=== PATIENT | male | born 1970 | race Caucasian/White ===

== ENCOUNTER 2016-06-08 21:36 | Emergency (ER) | payer OTHER ==
[~2016-06-08 21:36] MED LIST: ALDACTONE50 MG PO; CATAPRES 0.1MG0.1 MG PO; DILTIAZEM 24HR360 MG PO; FLONASE 0.05% N16 GM INH; GABAPENTIN600 MG PO; HUMALOG100 UNIT/1 SQ; LEVEMIR100 UNIT/1 SQ; LISINOPRIL30 MG PO; PERCOCET 5-3251 EACH PO; PRAVACHOL20 MG PO; ZANTAC150 MG PO; ZOFRAN4 MG PO
[2016-06-08 22:51] LABS: RED BLOOD COUNT 4.57 M/UL (4.20-5.50); WHITE BLOOD COUNT 14.4 K/UL (4.5-11.0)
== END 2016-06-09 09:50 | disposition short-term general hospital (02) ==
LOC: ER1 21:36
PROVIDERS: Emergency Medicine
DX: R51 Headache (principal); R42 Dizziness and giddiness; I12.9 Hypertensive chronic kidney disease with stage 1 through stage 4 chronic kidney disease, or unspecified chronic kidney disease; E11.22 Type 2 diabetes mellitus with diabetic chronic kidney disease; N18.9 Chronic kidney disease, unspecified; Z90.49 Acquired absence of other specified parts of digestive tract; Z79.4 Long term (current) use of insulin; Z79.899 Other long term (current) drug therapy
CPT/HCPCS: 36415; 70450; 71010; 80053; 81001; 82550; 82553; 83874; 84484; 85025; 93005; 96374; 96375; 99285; J1200; J1885; J2405; J2550; J2765; J3360; J7030; J7040

== ENCOUNTER 2020-06-19 10:12 | Inpatient (IN) | payer OTHER ==
[~2020-06-19] VITALS: Ht 185.4 cm; Wt 136.1 kg
[~2020-06-19 10:12] MED LIST changes: -ALDACTONE50 MG PO; -CATAPRES 0.1MG0.1 MG PO; -HUMALOG100 UNIT/1 SQ; -LEVEMIR100 UNIT/1 SQ; +NORCO 7.5-3251 EACH PO; +ROBAXIN-750750 MG PO
[2020-06-19 12:29] LABS: HEMOGLOBIN 18.2 gm/dl (14.0-17.5); RED BLOOD COUNT 5.53 M/UL (4.20-5.50)
[2020-06-19] MEDS ORDERED: TRAMADOL HCL50 MG PO (15:47)
[2020-06-19] MEDS ORDERED: OMEPRAZOLE20 MG PO (15:50)
[2020-06-19] MEDS ORDERED: MELOXICAM15 MG PO (15:50)
[2020-06-19] MEDS ORDERED: BUSPAR 10MG10 MG PO (15:51)
[2020-06-19] MEDS ORDERED: MELATONIN5 MG PO (16:18)
[2020-06-19] MEDS ORDERED: SINGULAIR10 MG PO (16:19)
[2020-06-19] MEDS ORDERED: WELLBUTRIN SR150 M1 PO (16:19)
[2020-06-19] MEDS ORDERED: CLARITIN10 MG PO (16:19)
[2020-06-19] MEDS ORDERED: EPLERENONE50 MG PO (18:07)
[2020-06-19] MEDS ORDERED: CATAPRES 0.1MG0.1 MG PO (18:07)
[2020-06-19] MEDS ORDERED: BASAGLAR K100 UNIT/1 SC (18:10)
[2020-06-19] MEDS ORDERED: HUMALOG100 UNIT/1 SQ (18:11)
[2020-06-20 03:43] LABS: HEMOGLOBIN 17.2 gm/dl (14.0-17.5); RED BLOOD COUNT 5.33 M/UL (4.20-5.50); WHITE BLOOD COUNT 12.2 K/UL (4.5-11.0)
[2020-06-21 03:15] LABS: WHITE BLOOD COUNT 14.2 K/UL (4.5-11.0)
[2020-06-21 03:31] LABS: HEMOGLOBIN 15.2 gm/dl (14.0-17.5); RED BLOOD COUNT 4.73 M/UL (4.20-5.50)
[2020-06-23 05:49] LABS: HEMOGLOBIN 16.2 gm/dl (14.0-17.5); RED BLOOD COUNT 5.14 M/UL (4.20-5.50)
[2020-06-23 06:05] LABS: BUN/CREATININE RATIO 14 (0-10)
[2020-06-24 06:28] LABS: HEMOGLOBIN 15.6 gm/dl (14.0-17.5); RED BLOOD COUNT 4.83 M/UL (4.20-5.50); WHITE BLOOD COUNT 14.3 K/UL (4.5-11.0)
[2020-06-24 07:03] LABS: BUN/CREATININE RATIO 14 (0-10)
[2020-06-25 03:25] LABS: HEMOGLOBIN 14.5 gm/dl (14.0-17.5); RED BLOOD COUNT 4.51 M/UL (4.20-5.50); WHITE BLOOD COUNT 13.3 K/UL (4.5-11.0)
[2020-06-25 03:49] LABS: BUN/CREATININE RATIO 19 (0-10)
[2020-06-25] MEDS ORDERED: LEVOFLOXACIN500 MG PO (13:00)
--- NOTE | 2020-06-25 13:58 | NUR ---
INSTRUCTED PATIENT ON LEVAQUIN, FOLLOW UP APPOINTMENT, SIGNS AND SYMPTOMS OF PANCREATITIS. VERBALIZED UNDERSTANDING. Patricia KRAUS.
== END 2020-06-25 14:26 | disposition home or self-care (01) | DRG 438 ==
LOC: ER1 10:12 → MED SURG 4 15:37 → CDU 15:37 → MED SURG 4 20:30
PROVIDERS: Internal Medicine; Physician Assistant; ADMIT Internal Medicine
DX: K85.90 Acute pancreatitis without necrosis or infection, unspecified (principal); J18.9 Pneumonia, unspecified organism; E87.2 Acidosis; R65.10 Systemic inflammatory response syndrome (SIRS) of non-infectious origin without acute organ dysfunction; N17.9 Acute kidney failure, unspecified; D72.829 Elevated white blood cell count, unspecified; E11.9 Type 2 diabetes mellitus without complications; E78.5 Hyperlipidemia, unspecified; I12.9 Hypertensive chronic kidney disease with stage 1 through stage 4 chronic kidney disease, or unspecified chronic kidney disease; E11.22 Type 2 diabetes mellitus with diabetic chronic kidney disease; N18.30 Chronic kidney disease, stage 3 unspecified; Z20.822 Contact with and (suspected) exposure to COVID-19; E26.01 Conn's syndrome; G89.29 Other chronic pain; D75.1 Secondary polycythemia; E87.5 Hyperkalemia; K76.0 Fatty (change of) liver, not elsewhere classified; I16.0 Hypertensive urgency; R91.1 Solitary pulmonary nodule; E66.01 Morbid (severe) obesity due to excess calories; F19.21 Other psychoactive substance dependence, in remission; Z72.0 Tobacco use; Z79.4 Long term (current) use of insulin; Z82.49 Family history of ischemic heart disease and other diseases of the circulatory system; Z83.6 Family history of other diseases of the respiratory system; Z68.39 Body mass index [BMI] 39.0-39.9, adult; Z90.49 Acquired absence of other specified parts of digestive tract
CPT/HCPCS: 36415; 36600; 71045; 71046; 80048; 80053; 80061; 81001; 82009; 82150; 82800; 82962; 83036; 83605; 83690; 85025; 85027; 87040; 87081; 87086; 87880; 96374; 96375; 96376; 99284; J0360; J1644; J2270; J2405; J2550; J7030; U0002

== ENCOUNTER → 2020-07-20 | Outpatient (CLI) | payer OTHER ==
[~2020-07-20] MED LIST changes: +BASAGLAR K100 UNIT/1 SC; +BUSPAR 10MG10 MG PO; +CATAPRES 0.1MG0.1 MG PO; +CLARITIN10 MG PO; +EPLERENONE50 MG PO; +HUMALOG100 UNIT/1 SQ; +LEVOFLOXACIN500 MG PO; +MELATONIN5 MG PO; +MELOXICAM15 MG PO; +OMEPRAZOLE20 MG PO; +SINGULAIR10 MG PO; +TRAMADOL HCL50 MG PO; +WELLBUTRIN SR150 M1 PO
== END ==
LOC: CT 07-11 14:00
DX: R91.1 Solitary pulmonary nodule (principal)
CPT/HCPCS: 71260; Q9967

== ENCOUNTER 2020-11-29 13:55 | Inpatient (IN) | payer OTHER ==
[~2020-11-29] VITALS: Ht 185.4 cm; Wt 146.2 kg
[2020-11-29 15:26] LABS: HEMOGLOBIN 17.8 gm/dl (14.0-17.5); RED BLOOD COUNT 5.55 M/UL (4.20-5.50)
[2020-11-29 16:14] LABS: BUN/CREATININE RATIO 16 (0-10)
[2020-11-30] MEDS ORDERED: FUROSEMIDE20 MG PO ×2 (03:00→03:12)
[2020-11-30] MEDS ORDERED: PROMETHAZINE HC25 M1 PO (03:01)
[2020-11-30] MEDS ORDERED: TRAMADOL HCL50 MG PO (03:10)
[2020-11-30 06:24] LABS: HEMOGLOBIN 16.3 gm/dl (14.0-17.5); RED BLOOD COUNT 5.13 M/UL (4.20-5.50); WHITE BLOOD COUNT 11.9 K/UL (4.5-11.0)
[2020-12-01 03:05] LABS: HEMOGLOBIN 14.7 gm/dl (14.0-17.5); RED BLOOD COUNT 4.64 M/UL (4.20-5.50); WHITE BLOOD COUNT 10.5 K/UL (4.5-11.0)
[2020-12-02] MEDS ORDERED: LOPRESSOR 25 MG25 MG PO (10:48)
== END 2020-12-02 12:51 | disposition home or self-care (01) | DRG 439 ==
LOC: ER1 13:55 → CDU 17:55 → PROG CARE 11-30 02:56
PROVIDERS: Internal Medicine; Physician Assistant; Preventive Medicine Occupational Medicine; ADMIT Internal Medicine
DX: K85.90 Acute pancreatitis without necrosis or infection, unspecified (principal); E87.2 Acidosis; N17.9 Acute kidney failure, unspecified; E87.1 Hypo-osmolality and hyponatremia; Z68.41 Body mass index [BMI] 40.0-44.9, adult; Z20.822 Contact with and (suspected) exposure to COVID-19; E10.65 Type 1 diabetes mellitus with hyperglycemia; E10.22 Type 1 diabetes mellitus with diabetic chronic kidney disease; I12.9 Hypertensive chronic kidney disease with stage 1 through stage 4 chronic kidney disease, or unspecified chronic kidney disease; G89.29 Other chronic pain; N18.30 Chronic kidney disease, stage 3 unspecified; E87.5 Hyperkalemia; E66.01 Morbid (severe) obesity due to excess calories; E78.5 Hyperlipidemia, unspecified; Z79.4 Long term (current) use of insulin; Z90.49 Acquired absence of other specified parts of digestive tract; Z72.89 Other problems related to lifestyle
CPT/HCPCS: 36415; 36600; 80048; 80053; 82009; 82140; 82150; 82550; 82553; 82803; 82962; 83605; 83690; 83874; 84484; 85025; 86140; 87040; 93005; 96374; 96375; 99285; C9113; G0480; J0610; J1170; J1650; J2270; J2405; J2550; J7030; U0002

== ENCOUNTER → 2021-12-24 | Outpatient (CLI) | payer OTHER ==
[~2021-12-24] MED LIST changes: +FUROSEMIDE20 MG PO; +LOPRESSOR 25 MG25 MG PO; +PROMETHAZINE HC25 M1 PO
== END ==
LOC: HEART 5 13:26
DX: R06.00 Dyspnea, unspecified (principal)
CPT/HCPCS: 94060; 94729